=== PATIENT | female | born 1990 | race African-American/Black ===

== ENCOUNTER 2019-07-10 03:50 | Emergency (ER) | payer MEDICAID ==
[~2019-07-10] VITALS: Ht 157.5 cm; Wt 61.2 kg
[~2019-07-10 03:50] MED LIST: ACETAMINOPHEN500 M3 ORAL; AZITHROMYCIN250 MG ORAL; IBUPROFEN600 MG ORAL; SALINE NASAL SP45 ML NASAL; ZOFRAN4 MG ORAL; [UNRECOGNIZED DRUG - OTHER] PO
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
[2019-07-10 04:07] VITALS: BP 132/68
[2019-07-10] MEDS ORDERED: IBUPROFEN600 M1 ORAL (04:20)
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
--- NOTE | 2019-07-10 04:22 | NUR ---
ED Nurse Note: all medications administered, pt tolerated well no ss of distress noted. will continue to monitor.
[2019-07-10] MEDS ORDERED: HYDROcodone/Acetamin 5/325 tab ORAL ONE (04:30)
[2019-07-10 04:32] VITALS: BP 132/68
--- NOTE | 2019-07-10 04:32 | NUR ---
ER DISCHARGE NOTE: Patient is cleared to be discharged home per ERMD, pt is aox4, on room air, with stable vital signs. pt was given dc and prescription instructions, pt was able to verbalize understanding, pt id band removed. pt is able to ambulate with steady gait. pt took all belongings.
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
== END 2019-07-10 04:32 | disposition home or self-care (01) ==
LOC: EMR 04:05
DX: S30.1XXA Contusion of abdominal wall, initial encounter (principal); S80.811A Abrasion, right lower leg, initial encounter; V43.62XA Car passenger injured in collision with other type car in traffic accident, initial encounter; Y92.410 Unspecified street and highway as the place of occurrence of the external cause
CPT/HCPCS: 73590; Z7502; 99283

== ENCOUNTER 2019-09-05 20:45 | Emergency (ER) | payer MEDICAID ==
[~2019-09-05] VITALS: Ht 157.5 cm; Wt 61.2 kg
[~2019-09-05 20:45] MED LIST changes: +IBUPROFEN600 M1 ORAL
[2019-09-05 20:50] VITALS: BP 126/85
--- NOTE | 2019-09-05 20:50 | NUR ---
ED Nurse Note: pt ambulated to ED from home, c/o N/V since last night, pt denies fever or any other symptom, VSS. Pt is A&Ox4. ERMD at bedside, labs and urine sent to lab.
--- NOTE | 2019-09-05 20:59 | Emergency Room Report ---
History of Present Illness General Chief Complaint: Vomiting Source: Patient Present Illness HPI Patient is a 28-year-old female denies any significant past medical history who presents to the ER complaining of nausea and vomiting since yesterday. Patient complains of generalized body aches and weakness. She denies any fever or chills. She denies any abdominal pain. She denies any chest pain or shortness of breath. She denies any hematuria or dysuria. She denies any diarrhea or constipation. She denies eating anything unusual or any sick contacts. She states her last menstrual period was August 16 of this year. 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: No Patient History Social History: Reports: smoking Last Menstrual Period: 08/17/19 Now: No : 2 Para: 2 Reviewed Nursing Documentation: PMH: Agreed; PSxH: Agreed Nursing Documentation-PMH Past Medical History: No Stated History Review of Systems All Other Systems: negative except mentioned in HPI Physical Exam Vital Signs Date Time Temp Pulse Resp B/P (MAP) Pulse Ox O2 Delivery O2 Flow Rate FiO2 09/05/19 20:48 98.2 88 18 126/85 (99) 96 Room Air Sp02 EP Interpretation: reviewed, normal General Appearance: no apparent distress, alert, GCS 15, non-toxic Head: normocephalic, atraumatic Eyes: bilateral eye normal inspection, bilateral eye PERRL ENT: hearing grossly normal, normal pharynx, no angioedema, normal voice Neck: full range of motion, supple/symm/no masses Respiratory: chest non-tender, lungs clear, normal breath sounds, speaking full sentences Cardiovascular #1: regular rate, rhythm, no edema Gastrointestinal: normal bowel sounds, non tender, soft, non-distended, no guarding, no rebound Rectal: deferred Genitourinary: no CVA tenderness Musculoskeletal: normal range of motion Neurologic: cosmetics demonstrator III-XII nml as tested, oriented x3 Psychiatric: no suicidal/homicidal ideation Skin: no rash Lymphatic: no adenopathy Medical Decision Making Diagnostic Impression: Primary Impression: Hypoglycemia Additional Impressions: Hypokalemia Amphetamine abuse Tetrahydrocannabinol (THC) dependence URI, acute ER Course Patient presents with generalized body aches, nausea and vomiting. Patient's urinalysis positive for UTI. She has been started on Macrobid and urine culture has been sent. Patient also positive for amphetamines as well as THC. Patient mildly hypoglycemic with glucose of 66 and mildly hypokalemic with potassium of 3.4. D50 has been ordered as well as 20 mEq of oral potassium chloride. Patient given 1 L of IV fluids. On reevaluation she states that she feels better. After discussing risks and benefits of further diagnostics, treatment plans, as well as indications for and risks of admission, the patient is agreeable to being discharged home. I have explained that their evaluation and treatment in the emergency department today is an important step towards them achieving better health but that their evaluation today is not intended to replace further evaluation and treatment by a physician in their local clinic. I have explained that while the current findings suggest no immediate life threatening emergency they will require further evaluation and treatment by a physician of their choice in their area. They understand that it will be necessary for them to review the final reports of their ED visit with their clinic physician. We have reviewed indications for return to the Emergency Department. I have explained that additional time may need to pass and/or additional testing as an outpatient may be necessary before a definitive diagnosis can be made. They tell me they are willing to follow up as instructed within the timeframe I recommend. They appear to understand what we discussed. Additionally they understand that if they are unable to be seen by an outpatient physician they are welcome, and in fact should, return to the Emergency Department for a repeat evaluation. The patient is stable at time of discharge. Chest X-Ray Diagnostic Results Chest X-Ray Diagnostic Results : Chest X-Ray Ordered: Yes # of Views/Limited/Complete: 1 View Indication: Other - Weakness EP Interpretation: Yes Interpretation: no consolidation, no effusion, no pneumothorax, no acute cardiopulmonary disease Impression: No acute disease Electronically Signed by: Karie Solomon MD Last Vital Signs Date Time Temp Pulse Resp B/P (MAP) Pulse Ox O2 Delivery O2 Flow Rate FiO2 09/05/19 20:48 98.2 88 18 126/85 (99) 96 Room Air Disposition: HOME, SELF-CARE Condition: Stable Scripts Nitrofurantoin Monohyd/M-Cryst* (MACROBID 100 MG*) 100 Mg Capsule 100 MG ORAL EVERY 12 HOURS for 7 Days, CAP Prov: Karie Solomon M.D. 09/05/19 Ondansetron* (ZOFRAN*) 4 Mg Tablet 4 MG ORAL Q6H PRN for Nausea & Vomiting, #14 TAB Prov: Karie Solomon M.D. 09/05/19 Referrals: NON PHYSICIAN (PCP) Additional Instructions: The patient was provided with discharge instructions, notified to follow-up with a primary care doctor and or specialist in the next 24-48 hours, and to return to the ED if they have worsening of their symptoms. Please note that this report is being documented using [employer] technology. This can lead to erroneous entry secondary to incorrect interpretation by the dictating instrument. Karie Solomon M.D. Sep 05, 2019 20:58
[2019-09-05] MEDS ORDERED: Metoclopramide 10mg/2ml Inj IVP ONE (21:00)
[2019-09-05 21:34] LABS: ANION GAP 12 mmol/L (5-15); BLOOD UREA NITROGEN 10 mg/dL (7-18); CALCIUM 9.2 MG/DL (8.5-10.1); CARBON DIOXIDE 26 MMOL/L (21-32); CHLORIDE 100 MMOL/L (98-107); CREATININE 0.7 MG/DL (0.55-1.30); POTASSIUM 3.4 MMOL/L (3.5-5.1); SODIUM 138 MMOL/L (136-145)
[2019-09-05 21:38] LABS: APPEARANCE,URINE CLOUDY; BILIRUBIN, URINE NEGATIVE (NEGATIVE); GLUCOSE, URINE (UA) NEGATIVE (NEGATIVE); KETONES,URINE 1+ (NEGATIVE); LEUKOCYTE ESTERASE ,URINE 3+ (NEGATIVE); NITRITE,URINE NEGATIVE (NEGATIVE); PH,URINE 5 (4.5-8.0); PROTEIN,URINE NEGATIVE (NEGATIVE); UROBILINOGEN,URINE 1 MG/DL (0.0-1.0)
[2019-09-05 21:40] LABS: ALANINE AMINOTRANSFERASE 26 U/L (12-78); ALBUMIN 4.6 G/DL (3.4-5.0); ALBUMIN/GLOBULIN RATIO 1.2 (1.0-2.7); ALKALINE PHOSPHATASE 77 U/L (46-116); ASPARTATE AMINO TRANSFERASE 12 U/L (15-37); BILIRUBIN,TOTAL 0.5 MG/DL (0.2-1.0)
[2019-09-05 21:43] LABS: COLOR,URINE YELLOW
[2019-09-05 21:44] LABS: BASOPHILS % (AUTO) 1.7 % (0.0-2.0); EOSINOPHILS % (AUTO) 1.2 % (0.0-3.0); HEMATOCRIT 47.5 % (37.0-47.0); HEMOGLOBIN 15.7 G/DL (12.0-16.0); LYMPHOCYTES % (AUTO) 24.3 % (20.0-45.0); MEAN CORPUSCULAR VOLUME 97 FL (80-99); NEUTROPHILS % (AUTO) 66.8 % (45.0-75.0); PLATELET COUNT 280 K/UL (150-450); RED BLOOD COUNT 4.92 M/UL (4.20-5.40); WHITE BLOOD COUNT 9.3 K/UL (4.8-10.8)
[2019-09-05] MEDS ORDERED: ZOFRAN4 M3 ORAL (21:50)
[2019-09-05] MEDS ORDERED: NITROFURANTOIN100 M2 ORAL (21:51)
[2019-09-05 22:10] VITALS: BP 110/82
--- NOTE | 2019-09-05 22:10 | NUR ---
ER DISCHARGE NOTE: Patient is cleared to be discharged per ERMD, pt is aox4, on room air, with stable vital signs. pt was given dc and prescription instructions, pt was able to verbalize understanding, pt id band and iv site removed without complications. pt is able to ambulate with steady gait. pt took all belongings.
--- NOTE | 2019-09-06 09:39 | Diagnostic Imaging Report ---
Procedure: XRAY Chest 1v Reason for study: Shortness of breath. Weakness. Comparison films: None. FINDINGS: A single one view chest is obtained. Vascularity is normal. The lung carrillo are clear bilaterally. Cardiac and mediastinal silhouette are within normal limits. CP angles are sharp. The bony thorax appear unremarkable. IMPRESSION: NO ACUTE CARDIOPULMONARY DISEASE.
== END 2019-09-05 22:10 | disposition home or self-care (01) ==
LOC: EMR 20:55
DX: E16.2 Hypoglycemia, unspecified (principal); E87.6 Hypokalemia; F15.10 Other stimulant abuse, uncomplicated; F12.20 Cannabis dependence, uncomplicated; J06.9 Acute upper respiratory infection, unspecified
CPT/HCPCS: 36415; 71045; 80053; 80307; 81003; 81025; 83690; 83735; 85025; 87086; 96361; 96374; 96375; J2765; J7030; Z7502; 99284; J8499